=== PATIENT | male | born 1975 | race Caucasian/White ===

== ENCOUNTER 2018-09-10 07:37 | Emergency (ER) | payer BC ==
[2018-09-10] MEDS ORDERED: Sodium Chloride 0.9% 10 ML Syringe FLUSH PRN (07:58)
[2018-09-10] MEDS ORDERED: Ketorolac 30 MG/ML SDV IVPUSH ONE (07:59)
[2018-09-10] MEDS ORDERED: Prochlorperazine 10 MG/2 ML SDV IVPUSH ONE (07:59)
[2018-09-10] MEDS ORDERED: diphenhydrAMINE 50 MG/ML SDV IVPUSH ONE (07:59)
--- NOTE | 2018-09-10 08:31 | EDM.PDOC ---
ED HPI GENERAL MEDICAL PROBLEM - General Chief Complaint: Headache Stated Complaint: MIGRAINE Time Seen by Provider: 09/10/18 07:52 Source of Information: Reports: Patient History Limitations: Reports: No Limitations - History of Present Illness INITIAL COMMENTS - FREE TEXT/NARRATIVE: The patient presents with a migraine. The pain is behind both eyes but more so behind the left eye. He has a history of migraines. This has been going on for about 2 days. He has no numbness, weakness, fever, chills or cough. Light does bother his eyes. He has nausea but no vomiting. Onset: Gradual Duration: Day(s): (2) Location: Reports: Head Quality: Reports: Sharp Severity: Severe Improves with: Reports: None Worsens with: Reports: None Associated Symptoms: Reports: Headaches, Nausea/Vomiting. 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 - Related Data Allergies Allergy/AdvReac Type Severity Reaction Status Date / Time acetaminophen [From Percocet] Allergy Cannot Verified 09/10/18 07:49 Remember bee pollen Allergy Cannot Verified 09/10/18 07:49 Remember morphine Allergy Cannot Verified 09/10/18 07:49 Remember oxycodone [From Percocet] Allergy Cannot Verified 09/10/18 07:49 Remember Past Medical History Psychiatric History: Reports: PTSD Social & Family History - Family History Family Medical History: Noncontributory - Tobacco Use Smoking Status *Q: Never Smoker - Caffeine Use Caffeine Use: Reports: Coffee - Recreational Drug Use Recreational Drug Use: No ED ROS GENERAL - Review of Systems Review Of Systems: See Below Constitutional: Reports: No Symptoms HEENT: Reports: No Symptoms Respiratory: Reports: No Symptoms Cardiovascular: Reports: No Symptoms Endocrine: Reports: No Symptoms GI/Abdominal: Reports: Nausea. Denies: Abdominal Pain, Vomiting : Reports: No Symptoms Musculoskeletal: Reports: No Symptoms Neurological: Reports: Headache - Physical Exam Exam: See Below Exam Limited By: No Limitations General Appearance: Alert, No Apparent Distress Ears: Normal External Exam Nose: Normal Inspection Head Exam: Atraumatic, Normocephalic Neck: Normal Inspection Respiratory/Chest: No Respiratory Distress, Lungs Clear, Normal Breath Sounds Cardiovascular: Regular Rate, Rhythm, No Edema, No Murmur GI/Abdominal: Soft, Non-Tender, No Organomegaly, No Mass Neuro Exam (Abbreviated): Alert, Oriented, No Motor/Sensory Deficits Course - Vital Signs Last Recorded V/S: Last Vital Signs Temp 97.5 F 09/10/18 07:46 Pulse 69 09/10/18 07:46 Resp 18 09/10/18 07:46 BP 123/81 09/10/18 07:46 Pulse Ox 97 09/10/18 07:46 - Orders/Labs/Meds Orders: Active Orders 24 hr Category Date Time Status Peripheral IV Care [RC] . DIRECTED Care 09/10/18 07:58 Active Sodium Chloride 0.9% [Saline Flush] Med 09/10/18 07:58 Active 10 ml FLUSH ASDIRECTED PRN Peripheral IV Insertion Adult [OM.PC] Routine Oth 09/10/18 07:58 Ordered Medication Orders Sodium Chloride (Saline Flush) 10 ml FLUSH ASDIRECTED PRN PRN Reason: Keep Vein Open Last Admin: 09/10/18 08:05 Dose: 10 ml Meds: Medications Generic Name Dose Route Start Last Admin Trade Name Freq PRN Reason Stop Dose Admin Sodium Chloride 10 ml 09/10/18 07:58 09/10/18 08:05 Saline Flush FLUSH 10 ml ASDIRECTED PRN Administration Keep Vein Open Discontinued Medications Generic Name Dose Route Start Last Admin Trade Name Freq PRN Reason Stop Dose Admin Diphenhydramine HCl 50 mg 09/10/18 07:59 09/10/18 08:05 Benadryl IVPUSH 09/10/18 08:00 50 mg ONETIME ONE Administration Hydromorphone HCl 1 mg 09/10/18 09:03 09/10/18 09:11 Dilaudid IVPUSH 09/10/18 09:04 1 mg ONETIME ONE Administration Ketorolac Tromethamine 30 mg 09/10/18 07:59 09/10/18 08:05 Toradol IVPUSH 09/10/18 08:00 30 mg ONETIME ONE Administration Prochlorperazine Edisylate 10 mg 09/10/18 07:59 09/10/18 08:04 Compazine IVPUSH 09/10/18 08:00 10 mg ONETIME ONE Administration - Re-Assessments/Exams Free Text/Narrative Re-Assessment/Exam: 09/10/18 08:30 I ordered an IV saline lock, compazine 10mg IV, toradol 30mg IV, and benadryl 50mg IV. 09/10/18 09:48 His headache was a little better but he was anxious after the meds. I ordered dilaudid 1mg IV and that helped and now he can sleep. His is here to take him home. Departure - Departure Time of Disposition: 09:50 Disposition: Home, Self-Care 01 Condition: Good Clinical Impression: Migraine - Discharge Information *PRESCRIPTION DRUG MONITORING PROGRAM REVIEWED*: Not Applicable *COPY OF PRESCRIPTION DRUG MONITORING REPORT IN PATIENT MIKALA: Not Applicable Referrals: PCP,None [Primary Care Provider] - Forms: ED Department Discharge Additional Instructions: Go home and rest. Keep taking your medications as prescribed. Please return if you are worse. - My Orders Last 24 Hours: My Active Orders 09/10/18 07:58 Peripheral IV Care [RC] . DIRECTED Sodium Chloride 0.9% [Saline Flush] 10 ml FLUSH ASDIRECTED PRN Peripheral IV Insertion Adult [OM.PC] Routine - Assessment/Plan Last 24 Hours: My Active Orders 09/10/18 07:58 Peripheral IV Care [RC] . DIRECTED Sodium Chloride 0.9% [Saline Flush] 10 ml FLUSH ASDIRECTED PRN Peripheral IV Insertion Adult [OM.PC] Routine
[2018-09-10] MEDS ORDERED: HYDROmorphone 1 MG/ML Syringe IVPUSH ONE (09:03)
== END 2018-09-10 10:00 | disposition home or self-care (01) ==
LOC: JD.ED 07:37
DX: G43.909 Migraine, unspecified, not intractable, without status migrainosus (principal); Z88.5 Allergy status to narcotic agent
CPT/HCPCS: 96374; 96375; 99283; J0780; J1170; J1200; J1885; 99284

== ENCOUNTER 2019-05-17 07:58 | Emergency (ER) | payer BC ==
[2019-05-17] MEDS ORDERED: diphenhydrAMINE 50 MG/ML SDV IVPUSH ONE (08:21)
[2019-05-17] MEDS ORDERED: Metoclopramide 10 MG/2 ML SDV IVPUSH ONE (08:22)
[2019-05-17] MEDS ORDERED: HYDROmorphone 0.5 MG/0.5 ML Syringe IVPUSH ONE (08:22)
--- NOTE | 2019-05-17 08:28 | EDM.PDOC ---
ED HPI GENERAL MEDICAL PROBLEM - General Chief Complaint: Headache Stated Complaint: MIGRAINE x 2 DAYS Time Seen by Provider: 05/17/19 08:13 Source of Information: Reports: Patient History Limitations: Reports: No Limitations - History of Present Illness INITIAL COMMENTS - FREE TEXT/NARRATIVE: 44-year-old male presents to the ED with a severe headache for the last 48 hours. He is prone to migraine headaches. Current headache is by temporal and a lot of pressure behind his eyes. Associated nausea without vomiting. Has been lying in a dark room in good portion of the weekend. Hasn't had much to eat or drink. Nothing different about this headache and what is experienced in the past. Denies any numbness it continues or paresthesias in any of his limbs. He is photosensitive to light. He has been using Excedrin Migraine at home with mild relief of the pain. Recent falls or closed head injuries. No recent sinus infection. Onset: Gradual Onset Date: 05/15/19 Duration: Hour(s): (Awoke with headache Friday.) Location: Reports: Head (By lateral) Quality: Reports: Ache ( pounding throbbing headache.), Throbbing, Other Severity: Moderate (Pounding 9 out of 10) Improves with: Reports: Rest Worsens with: Reports: Other (Lying still in a dark room helps a little bit.) Context: Reports: Other. Denies: Activity, Exercise ( Standing and walking), Lifting, Sick Contact, Trauma Associated Symptoms: Reports: No Other Symptoms, Headaches, Loss of Appetite, Malaise, Nausea/Vomiting. 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.) Headache Pain Score (Numeric/FACES): 9 - Related Data Allergies Allergy/AdvReac Type Severity Reaction Status Date / Time bee pollen Allergy Cannot Verified 05/17/19 08:18 Remember morphine Allergy Itching Verified 05/17/19 08:46 oxycodone [From Percocet] Allergy Itching Verified 05/17/19 08:46 diphenhydramine AdvReac Anxiety Verified 05/17/19 08:46 [From Benadryl] Home Meds: Home Meds QUEtiapine [SEROquel] 05/17/19 [History] buPROPion HCl [Wellbutrin Xl] 05/17/19 [History] cloNIDine [Catapres] 05/17/19 [History] hydrOXYzine HCL [Hydroxyzine HCl] 05/17/19 [History] Past Medical History Neurological History: Reports: Migraines Psychiatric History: Reports: PTSD Social & Family History - Family History Family Medical History: Noncontributory - Tobacco Use Smoking Status *Q: Never Smoker - Caffeine Use Caffeine Use: Reports: Coffee - Recreational Drug Use Recreational Drug Use: No - Living Situation & Occupation Living situation: Reports: Occupation: Employed ED ROS GENERAL - Review of Systems Review Of Systems: See Below Constitutional: Reports: Malaise, Fatigue, Decreased Appetite. Denies: Fever, Chills HEENT: Reports: Other (Photosensitive to light) Respiratory: Reports: No Symptoms Cardiovascular: Reports: No Symptoms Endocrine: Reports: No Symptoms GI/Abdominal: Reports: Decreased Appetite, Nausea : Reports: No Symptoms (Associated with the headache.) Musculoskeletal: Reports: No Symptoms Skin: Reports: No Symptoms Neurological: Reports: No Symptoms Psychiatric: Reports: No Symptoms Hematologic/Lymphatic: Reports: No Symptoms Immunologic: Reports: No Symptoms - Physical Exam Exam: See Below General Appearance: Alert, WD/WN, Mild Distress, Other (Wears dark sunglasses in the ED.) Eye Exam: Bilateral Eye: Normal Inspection, PERRL Throat/Mouth: Normal Inspection, Normal Lips, Normal Teeth, Normal Oropharynx, Other (Tongue is moist) Head Exam: Atraumatic, Normocephalic Neck: Normal Inspection, Supple, Non-Tender, Full Range of Motion. No: Lymphadenopathy (L), Lymphadenopathy (R) Respiratory/Chest: No Respiratory Distress, Lungs Clear, Normal Breath Sounds, No Accessory Muscle Use Cardiovascular: Normal Peripheral Pulses, Regular Rate, Rhythm, No Edema, No Murmur, No Rub GI/Abdominal: Normal Bowel Sounds, Soft, Non-Tender, No Organomegaly, No Abnormal Bruit, No Mass Neuro Exam (Abbreviated): Alert, Oriented, CN II-XII Intact, Normal Cognition, Normal Gait, No Motor/Sensory Deficits, Other (No pronator drift. Rapid alternating movements are normal.) Extremities: Normal Inspection, Normal Range of Motion, Non-Tender, No Pedal Edema Psychiatric: Flat Affect Skin Exam: Warm, Dry, Intact, Normal Color, No Rash Course - Vital Signs Last Recorded V/S: Last Vital Signs Temp 36.3 C 05/17/19 08:14 Pulse 74 05/17/19 08:14 Resp 15 05/17/19 08:14 BP 136/94 H 05/17/19 08:14 Pulse Ox 98 05/17/19 08:14 - Orders/Labs/Meds Orders: Active Orders 24 hr Category Date Time Status Dextrose 5%-0.9% NaCl [Dextrose 5%-Normal Saline] 1,000 Med 05/17/19 08:30 Active ml IV ASDIRECTED Ketorolac [Toradol] Med 05/17/19 08:30 Active 30 mg IVPUSH ONETIME Medication Orders Dextrose/Sodium Chloride (Dextrose 5%-Normal Saline) 1,000 mls @ 999 mls/hr IV ASDIRECTED DAVIS Last Admin: 05/17/19 08:31 Dose: 999 mls/hr Ketorolac Tromethamine (Toradol) 30 mg IVPUSH ONETIME DAVIS Last Admin: 05/17/19 08:33 Dose: 30 mg Meds: Medications Generic Name Dose Route Start Last Admin Trade Name Freq PRN Reason Stop Dose Admin Dextrose/Sodium Chloride 1,000 mls @ 999 mls/hr 05/17/19 08:30 05/17/19 08:31 Dextrose 5%-Normal Saline IV 999 mls/hr ASDIRECTED DAVIS Administration Ketorolac Tromethamine 30 mg 05/17/19 08:30 05/17/19 08:33 Toradol IVPUSH 30 mg ONETIME DAVIS Administration Discontinued Medications Generic Name Dose Route Start Last Admin Trade Name Freq PRN Reason Stop Dose Admin Diphenhydramine HCl 25 mg 05/17/19 08:21 05/17/19 08:34 Benadryl IVPUSH 05/17/19 08:22 Not Given ONETIME ONE Hydromorphone HCl 0.5 mg 05/17/19 08:22 05/17/19 08:34 Dilaudid IVPUSH 05/17/19 08:23 0.5 mg ONETIME ONE Administration Metoclopramide HCl 7.5 mg 05/17/19 08:22 05/17/19 08:33 Reglan IVPUSH 05/17/19 08:23 7.5 mg ONETIME ONE Administration - Radiology Interpretation Free Text/Narrative:: 44-year-old male presents to the ED with a severe bitemporal headache for the last 48 hours associated with nausea. He states it's quite typical of his migraine headaches that he experiences intermittently. Minimal relief with Excedrin Migraine at home. He is allergic to morphine and to Percocet. Both caused quite bad itching. Plan IV D5 normal saline at open. Given Reglan 7.5 mg IV with Benadryl 25 mg IV. Toradol 30 mg IV and Dilaudid 0.5 mg IV for headache relief. - Re-Assessments/Exams Free Text/Narrative Re-Assessment/Exam: 05/17/19 09:20 reports headache is slowly improving. Currently a 6 out of 10. He states it's tolerable this point time. Doesn't wish any more medication. Therefore will be discharged home in the care of his . He'll go home to sleep for the next couple of hours. He will resume regular diet when able. Departure - Departure Time of Disposition: 09:20 Disposition: Home, Self-Care 01 Condition: Fair Clinical Impression: Migraine headache Qualifiers: Migraine type: without aura Status migrainosus presence: without status migrainosus Intractability: not intractable Qualified Code(s): G43.009 - Migraine without aura, not intractable, without status migrainosus - Discharge Information *PRESCRIPTION DRUG MONITORING PROGRAM REVIEWED*: Not Applicable *COPY OF PRESCRIPTION DRUG MONITORING REPORT IN PATIENT MIKALA: Not Applicable Instructions: Recurrent Migraine Headache, [id number] Referrals: Jesus Soriano PA-C [Primary Care Provider] - Forms: ED Department Discharge, ED Return to Work/School Form Additional Instructions: Evaluation the emergency room today in regards to persistent severe headache for the last 2 days. Associated nausea without vomiting. Associated photophobia. You're treated with intravenous fluids and medications Dilaudid with Toradol 30 and Reglan 7.5 mg IV. Suggest home to sleep for the next 2-3 hours to see if he can break the headache cycle. Resume regular diet and plenty of fluids when able. Sepsis Event Note - Evaluation Sepsis Screening Result: No Definite Risk - Focused Exam Vital Signs: Vital Signs Temp Pulse Resp BP Pulse Ox 05/17/19 08:14 36.3 C 74 15 136/94 H 98 Date Exam was Performed: 05/17/19 Time Exam was Performed: 09:31 - My Orders Last 24 Hours: My Active Orders 05/17/19 08:30 Dextrose 5%-0.9% NaCl [Dextrose 5%-Normal Saline] 1,000 ml IV ASDIRECTED Ketorolac [Toradol] 30 mg IVPUSH ONETIME - Assessment/Plan Last 24 Hours: My Active Orders 05/17/19 08:30 Dextrose 5%-0.9% NaCl [Dextrose 5%-Normal Saline] 1,000 ml IV ASDIRECTED Ketorolac [Toradol] 30 mg IVPUSH ONETIME
[2019-05-17] MEDS ORDERED: Ketorolac 30 MG/ML SDV IVPUSH SCH (08:30)
[2019-05-17] MEDS ORDERED: Dextrose 5%-0.9% NaCl 1,000 ML IV SCH (08:30)
== END 2019-05-17 09:29 | disposition home or self-care (01) ==
LOC: JD.ED 07:58
DX: G43.009 Migraine without aura, not intractable, without status migrainosus (principal); Z88.5 Allergy status to narcotic agent; Z88.8 Allergy status to other drugs, medicaments and biological substances; Z79.899 Other long term (current) drug therapy
CPT/HCPCS: 96361; 96374; 96375; 99284; J1170; J1885; J2765; J7042; 99283

== ENCOUNTER 2020-08-10 06:49 | Emergency (ER) | payer BC ==
--- NOTE | 2020-08-10 07:20 | EDM.PDOC ---
ED HPI GENERAL MEDICAL PROBLEM - General Chief Complaint: Headache Stated Complaint: MIGRANE HEADACHE Time Seen by Provider: 08/10/20 07:10 Source of Information: Reports: Patient History Limitations: Reports: No Limitations - History of Present Illness INITIAL COMMENTS - FREE TEXT/NARRATIVE: 45-year-old male presents to the ED with a bad headache characterization of the migraine headaches that he suffers from intermittently. States he ends up in the ER about twice a year with a really bad headache. This 1 started about 10:00 last night. Pressure throbbing pulsating sensation mostly temporal parietal scalp bilaterally and behind his eyes bilaterally. Some pressure discomfort in the occipital area as well. Associated nausea without vomiting. Photophobic. Medications he took at home i.e. Motrin Tylenol failed to provide any relief of headache. Onset: Sudden Onset Date: 08/09/20 Onset Time: 22:00 Duration: Hour(s):, Constant Location: Reports: Head (Generalized headaches primarily felt in both temporal parietal scalp aspects of the scalp and retroocular headache. He described as pulsating throbbing. He slept very little last night due to the intensity of the headache.) Quality: Reports: Ache, Throbbing, Other Severity: Severe (Ulcerating) Improves with: Reports: None Worsens with: Reports: Movement Context: Denies: Activity (Sitting up or standing up makes the headache worse.), Exercise, Lifting, Sick Contact, Trauma, Other Associated Symptoms: Reports: Headaches, Loss of Appetite, Malaise, Nausea/Vomiting (Nausea without vomiting). Denies: No Other Symptoms, Confusion, Chest Pain, Cough, cough w sputum, Diaphoresis, Fever/Chills, Rash, Seizure, Shortness of Breath, Syncope, Weakness Treatments BATTERY HAND: Reports: Acetaminophen, NSAIDS Headache Pain Score (Numeric/FACES): 9 - Related Data Allergies Allergy/AdvReac Type Severity Reaction Status Date / Time bee pollen Allergy Cannot Verified 08/10/20 07:13 Remember morphine Allergy Itching Verified 08/10/20 07:13 oxycodone [From Percocet] Allergy Itching Verified 08/10/20 07:13 diphenhydramine AdvReac Anxiety Verified 08/10/20 07:13 [From Benadryl] Home Meds: Home Meds QUEtiapine [SEROquel] 100 mg PO BEDTIME 05/17/19 [History] buPROPion HCL [Wellbutrin Xl] 150 mg PO DAILY 05/17/19 [History] cloNIDine [Catapres] 0.1 mg PO DAILY 05/17/19 [History] hydrOXYzine HCL [Hydroxyzine HCl] 50 mg PO DAILY 05/17/19 [History] Past Medical History Neurological History: Reports: Migraines Psychiatric History: Reports: PTSD Social & Family History - Family History Family Medical History: No Pertinent Family History - Caffeine Use Caffeine Use: Reports: Coffee - Living Situation & Occupation Living situation: Reports: Occupation: Employed ED ROS GENERAL - Review of Systems Review Of Systems: See Below Constitutional: Reports: Malaise, Fatigue, Decreased Appetite (From not sleeping all night.). Denies: Fever, Chills HEENT: Reports: Other (Feels a sense sensitivity to light.) Respiratory: Reports: No Symptoms Cardiovascular: Reports: No Symptoms Endocrine: Reports: Fatigue GI/Abdominal: Reports: Decreased Appetite, Nausea. Denies: Vomiting : Reports: No Symptoms Musculoskeletal: Reports: No Symptoms Skin: Reports: No Symptoms Neurological: Reports: Dizziness (Frequent migraine headaches.), Headache Psychiatric: Reports: Other Hematologic/Lymphatic: Reports: No Symptoms Immunologic: Reports: No Symptoms (Suffers from PTSD.) - Physical Exam Exam: See Below Exam Limited By: No Limitations General Appearance: Alert, WD/WN, Mild Distress, Other (Temperature is 36.2 and he does not feel warm to palpation. Heart rate is 84 and sinus. Respiratory to 16 with O2 sats of 96% room air BP is 136/89.) Eye Exam: Bilateral Eye: Normal Inspection (No scleral icterus or blepharal pallor.), PERRL Throat/Mouth: Normal Lips, Normal Teeth, Other (Tongue is dry and mildly coated.) Head Exam: Atraumatic, Normocephalic Neck: Normal Inspection, Supple, Non-Tender, Full Range of Motion. No: Carotid Bruit, Lymphadenopathy (L), Lymphadenopathy (R) Respiratory/Chest: No Respiratory Distress, Lungs Clear, Normal Breath Sounds, No Accessory Muscle Use Cardiovascular: Normal Peripheral Pulses, Regular Rate, Rhythm, No Edema, No Gallop, No Murmur, No Rub GI/Abdominal: Soft, Non-Tender, No Organomegaly, No Abnormal Bruit, No Mass, Pelvis Stable, Abnormal Bowel Sounds (Slightly decreased breath sounds from the norm in all 4 quadrants.) Neuro Exam (Abbreviated): Alert, Oriented, CN II-XII Intact, Normal Cognition, Normal Gait, No Motor/Sensory Deficits Back Exam: Normal Inspection, Full Range of Motion. No: CVA Tenderness (L), CVA Tenderness (R) Extremities: Normal Inspection, Normal Range of Motion, Non-Tender, No Pedal Edema Psychiatric: Normal Affect, Normal Mood Skin Exam: Warm, Dry, Intact, Normal Color, No Rash Course - Vital Signs Last Recorded V/S: Last Vital Signs Temp 36.2 C 08/10/20 07:10 Pulse 84 08/10/20 07:10 Resp 16 08/10/20 07:10 BP 136/89 08/10/20 07:10 Pulse Ox 96 08/10/20 07:10 - Orders/Labs/Meds Orders: Active Orders 24 hr Category Date Time Status Dextrose 5%-0.9% NaCl [Dextrose 5%-Normal Saline] 1,000 Med 08/10/20 07:30 Active ml IV ASDIRECTED Medication Orders Dextrose/Sodium Chloride (Dextrose 5%-Normal Saline) 1,000 mls @ 999 mls/hr IV ASDIRECTED DAVIS Last Admin: 08/10/20 07:34 Dose: 999 mls/hr Documented by: NICK Meds: Medications Generic Name Dose Route Start Last Admin Trade Name Freq PRN Reason Stop Dose Admin Dextrose/Sodium Chloride 1,000 mls @ 999 mls/hr 08/10/20 07:30 08/10/20 07:34 Dextrose 5%-Normal Saline IV 999 mls/hr ASDIRECTED DAVIS Administration Discontinued Medications Generic Name Dose Route Start Last Admin Trade Name Freq PRN Reason Stop Dose Admin Benztropine Mesylate 1 mg 08/10/20 07:22 08/10/20 07:35 Benztropine 1 Mg Tab PO 08/10/20 07:23 1 mg ONETIME ONE Administration Hydromorphone HCl 1 mg 08/10/20 07:22 08/10/20 07:32 Hydromorphone 1 Mg/Ml Syringe IVPUSH 08/10/20 07:23 1 mg ONETIME ONE Administration Metoclopramide HCl 10 mg 08/10/20 07:22 08/10/20 07:30 Metoclopramide 10 Mg/2 Ml Sdv IVPUSH 08/10/20 07:23 10 mg ONETIME ONE Administration - Radiology Interpretation Free Text/Narrative:: 45-year-old male presents to the ED with a diffuse throbbing pounding pulsating headache felt primarily in both temporal aspects of his skull as well as parietal skull and left occipital area. These are characteristic of the type of migraines he usually gets. This 1 is a little more intense than what he usually gets. Associated nausea without vomiting. Oral meds Tylenol Motrin did not help at all. Slept very poorly last night due to the intensity of the headache. Patient is allergic to Benadryl as it makes him very anxious. Toradol has not helped in the past. Plan IV D5 normal saline at open. Given Dilaudid 1 mg IV with Reglan 10 mg IV for headache relief. - Re-Assessments/Exams Free Text/Narrative Re-Assessment/Exam: 08/10/20 08:24 patient reports headache is markedly improved. Currently rates it is a 3-4 out of 10. Plan will be to discharge him home to sleep for the next 3 to 4 hours to break the headache cycle. Departure - Departure Time of Disposition: 08:35 Disposition: Home, Self-Care 01 Condition: Fair Clinical Impression: Migraine headache without aura Qualifiers: Status migrainosus presence: without status migrainosus Intractability: not intractable Qualified Code(s): G43.009 - Migraine without aura, not intractable, without status migrainosus - Discharge Information *PRESCRIPTION DRUG MONITORING PROGRAM REVIEWED*: Not Applicable *COPY OF PRESCRIPTION DRUG MONITORING REPORT IN PATIENT MIKALA: Not Applicable Instructions: Recurrent Migraine Headache Referrals: Jesus Soriano PA-C [Primary Care Provider] - Forms: ED Department Discharge Additional Instructions: Evaluation in the emergency room today in regards to a severe migraine headache that started last evening before bed. You were treated in the ED with a liter of IV fluids to provide hydration. You were given Dilaudid 1 mg IV with Reglan 10 mg IV for headache relief . Just home to sleep rest for the next 3 to 4 hours to break the headache cycle. Resume regular diet when able. Sepsis Event Note (ED) - Focused Exam Vital Signs: Vital Signs Temp Pulse Resp BP Pulse Ox 08/10/20 07:10 36.2 C 84 16 136/89 96 - My Orders Last 24 Hours: My Active Orders 08/10/20 07:30 Dextrose 5%-0.9% NaCl [Dextrose 5%-Normal Saline] 1,000 ml IV ASDIRECTED - Assessment/Plan Last 24 Hours: My Active Orders 08/10/20 07:30 Dextrose 5%-0.9% NaCl [Dextrose 5%-Normal Saline] 1,000 ml IV ASDIRECTED
[2020-08-10] MEDS ORDERED: Benztropine 1 MG Tab PO ONE (07:22)
[2020-08-10] MEDS ORDERED: HYDROmorphone 1 MG/ML Syringe IVPUSH ONE (07:22)
[2020-08-10] MEDS ORDERED: Metoclopramide 10 MG/2 ML SDV IVPUSH ONE (07:22)
[2020-08-10] MEDS ORDERED: Dextrose 5%-0.9% NaCl 1,000 ML IV SCH (07:30)
== END 2020-08-10 08:39 | disposition home or self-care (01) ==
LOC: SUPCPDRO 06:49 → JD.ED 06:49
DX: G43.009 Migraine without aura, not intractable, without status migrainosus (principal); Z91.030 Bee allergy status; Z88.5 Allergy status to narcotic agent; Z88.8 Allergy status to other drugs, medicaments and biological substances; Z79.899 Other long term (current) drug therapy
CPT/HCPCS: 96374; 96375; 99283; A9270; J1170; J2765; J7042

== ENCOUNTER 2020-10-18 17:37 | Emergency (ER) | payer BC ==
[2020-10-18] MEDS ORDERED: Ketorolac 60 MG/2 ML SDV IM ONE (17:51)
[2020-10-18] MEDS ORDERED: HYDROmorphone 0.5 MG/0.5 ML Syringe IM ONE (17:51)
[2020-10-18] MEDS ORDERED: Metoclopramide 10 MG/2 ML SDV IM ONE (17:51)
--- NOTE | 2020-10-18 17:55 | EDM.PDOC ---
ED HPI GENERAL MEDICAL PROBLEM - General Chief Complaint: Headache Stated Complaint: HEADACHE Time Seen by Provider: 10/18/20 17:40 Source of Information: Reports: Patient, RN Notes Reviewed History Limitations: Reports: No Limitations - History of Present Illness INITIAL COMMENTS - FREE TEXT/NARRATIVE: Patient is a 45-year-old male who presents to the ER for evaluation of his headache. Notes that he has a history of migraines, and he typically gets a pretty bad migraine like this every 3 or 4 months. His last migraine like this was around July. States that this headache started on Friday, and he is not been able to get it under control. He has been using Excedrin at home, last dose was at around 4 PM this afternoon. He does have light and sound sensitivities, nausea without vomiting. States that he has been able to eat and drink a fair amount, he does not feel too dehydrated. States that the headache is behind his eyes, on the frontal portion of his head. States he has had a neurological work-up many years ago, he has not been on any sort of prophylaxis medications, states that he used to give himself Toradol shots, but he is not been on any triptan's. States that he supposed to have an appoint with Jesus Soriano sometime soon for ongoing management. States that his headache is typical for his normal headaches, nothing seems to be worse. Headache Pain Score (Numeric/FACES): 8 - Related Data Allergies Allergy/AdvReac Type Severity Reaction Status Date / Time bee pollen Allergy Severe Cannot Verified 10/18/20 17:44 Remember morphine Allergy Severe Itching Verified 10/18/20 17:44 oxycodone [From Percocet] Allergy Severe Itching Verified 10/18/20 17:44 diphenhydramine AdvReac Severe Anxiety Verified 10/18/20 17:44 [From Benadryl] Home Meds: Home Meds QUEtiapine [SEROquel] 100 mg PO BEDTIME 05/17/19 [History] buPROPion HCL [Wellbutrin Xl] 150 mg PO DAILY 05/17/19 [History] cloNIDine [Catapres] 0.1 mg PO DAILY 05/17/19 [History] hydrOXYzine HCL [Hydroxyzine HCl] 50 mg PO DAILY 05/17/19 [History] ALPRAZolam [Alprazolam] 0.25 mg PO DAILY PRN 10/18/20 [History] Prazosin HCl [Prazosin] 2 mg PO BEDTIME 10/18/20 [History] lamoTRIgine [Lamotrigine] 100 mg PO DAILY 10/18/20 [History] Past Medical History HEENT History: Reports: Impaired Vision Other HEENT History: wears eyeglasses. Respiratory History: Reports: Asthma Musculoskeletal History: Reports: Fracture Neurological History: Reports: Migraines Psychiatric History: Reports: Anxiety, PTSD Endocrine/Metabolic History: Reports: Obesity/BMI 30+ - Infectious Disease History Infectious Disease History: Reports: Chicken Pox, Measles - Past Surgical History GI Surgical History: Reports: Appendectomy, Cholecystectomy Musculoskeletal Surgical History: Reports: Arthroscopic Knee, Shoulder Surgery Social & Family History - Family History Family Medical History: No Pertinent Family History - Tobacco Use Tobacco Use Status *Q: Never Tobacco User - Caffeine Use Caffeine Use: Reports: Soda - Recreational Drug Use Recreational Drug Use: No - Living Situation & Occupation Living situation: Reports: Occupation: Employed ED ROS GENERAL - Review of Systems Review Of Systems: Comprehensive ROS is negative, except as noted in HPI. - Physical Exam Exam: See Below Exam Limited By: No Limitations General Appearance: Alert, WD/WN, No Apparent Distress Eye Exam: Bilateral Eye: EOMI, Normal Inspection, PERRL Respiratory/Chest: No Respiratory Distress, Lungs Clear, Normal Breath Sounds, No Accessory Muscle Use, Chest Non-Tender Cardiovascular: Normal Peripheral Pulses, Regular Rate, Rhythm, No Edema Neuro Exam (Abbreviated): Alert, Oriented, Normal Cognition, No Motor/Sensory Deficits Extremities: Normal Inspection, Normal Capillary Refill Psychiatric: Normal Affect, Normal Mood Skin Exam: Warm, Dry, Intact, Normal Color, No Rash Course - Vital Signs Last Recorded V/S: Last Vital Signs Temp 96.8 F L 10/18/20 17:42 Pulse 82 10/18/20 17:42 Resp 16 10/18/20 17:42 BP 150/93 H 10/18/20 17:42 Pulse Ox 96 10/18/20 17:42 - Orders/Labs/Meds Meds: Medications Discontinued Medications Generic Name Dose Route Start Last Admin Trade Name Freq PRN Reason Stop Dose Admin Hydromorphone HCl 0.5 mg 10/18/20 17:51 10/18/20 18:19 Hydromorphone 0.5 Mg/0.5 Ml Syringe IM 10/18/20 17:52 0.5 mg ONETIME ONE Administration Ketorolac Tromethamine 60 mg 10/18/20 17:51 10/18/20 18:18 Ketorolac 60 Mg/2 Ml Sdv IM 10/18/20 17:52 60 mg ONETIME ONE Administration Metoclopramide HCl 10 mg 10/18/20 17:51 10/18/20 18:19 Metoclopramide 10 Mg/2 Ml Sdv IM 10/18/20 17:52 10 mg ONETIME ONE Administration - Re-Assessments/Exams Free Text/Narrative Re-Assessment/Exam: 10/18/20 17:55 Patient presents to the ER for his headache, we will go ahead and get him 60 mg IM Toradol, 0.5 mg IM Dilaudid, and 10 mg IM Reglan for management. 10/18/20 18:43 Patient is feeling better, he is ready to go home at this time. Departure - Departure Time of Disposition: 18:43 Disposition: Home, Self-Care 01 Condition: Good Clinical Impression: Headache Qualifiers: Headache type: other headache syndrome Qualified Code(s): G44.89 - Other headache syndrome - Discharge Information *PRESCRIPTION DRUG MONITORING PROGRAM REVIEWED*: No *COPY OF PRESCRIPTION DRUG MONITORING REPORT IN PATIENT MIKALA: No Instructions: Migraine Headache, [id number] Referrals: Jesus Soriano PA-C [Primary Care Provider] - Forms: ED Department Discharge Additional Instructions: You were evaluated in the ED for your headache. You were given a combination of medications for management. This did seem to provide you pretty good relief of your symptoms. Recommend that you go home and rest in a quiet, darkened room. Try also to keep well hydrated. Please return to the ED if your symptoms should change or worsen. Sepsis Event Note (ED) - Evaluation Sepsis Screening Result: No Definite Risk - Focused Exam Vital Signs: Vital Signs Temp Pulse Resp BP Pulse Ox 10/18/20 17:42 96.8 F L 82 16 150/93 H 96
== END 2020-10-18 19:10 | disposition home or self-care (01) ==
LOC: JD.ED 17:37
DX: G44.89 Other headache syndrome (principal); J45.909 Unspecified asthma, uncomplicated; E66.9 Obesity, unspecified; Z68.30 Body mass index [BMI] 30.0-30.9, adult; Z91.030 Bee allergy status; Z88.5 Allergy status to narcotic agent; Z88.6 Allergy status to analgesic agent; Z79.899 Other long term (current) drug therapy
CPT/HCPCS: 96372; 99283; J1170; J1885; J2765

== ENCOUNTER 2020-12-12 07:48 | Day surgery (SDC) | payer BC ==
[~2020-12-12 07:48] MED LIST: Lactated Ringers 1,000 ML IV SCH; Lidocaine 1%/Sod Bicarbonate in NS 8.4% 1 ML Syringe IDERM PRN; Sodium Chloride 0.9% 10 ML Syringe FLUSH PRN
[2020-12-12] MEDS ORDERED: Bupivacaine 0.5%/EPINEPHrine 1:200,000 50 ML MDV ONE (08:05)
[2020-12-12] MEDS ORDERED: Propofol 200 MG/20 ML SDV ONE (08:34)
[2020-12-12] MEDS ORDERED: fentaNYL 250 MCG/5 ML SDV ONE (08:34)
[2020-12-12] MEDS ORDERED: Midazolam 1 MG/ML 2 ML SDV ONE (08:34)
[2020-12-12] MEDS ORDERED: Dexamethasone 4 MG/ML 5 ML MDV ONE (08:36)
[2020-12-12] MEDS ORDERED: Rocuronium 50 MG/5 ML Vial ONE (08:36)
[2020-12-12] MEDS ORDERED: Lidocaine 1% 4 ML ONE (08:36)
[2020-12-12] MEDS ORDERED: Ondansetron 4 MG/2 ML SDV ONE (08:36)
[2020-12-12] MEDS ORDERED: ceFAZolin 1 GM Vial ONE (09:20)
[2020-12-12] MEDS ORDERED: Dexmedetomidine 200 MCG/2 ML SDV ONE (09:26)
[2020-12-12] MEDS ORDERED: Sodium Chloride 0.9% 100 ML ONE (09:26)
[2020-12-12] MEDS ORDERED: HYDROmorphone 1 MG/ML Syringe ONE (09:53)
--- NOTE | 2020-12-12 10:34 | PCM.PRNOTE ---
- Free Text/Narrative Note: Date: 12/12/2020 Operation: laparoscopic repair of epigastric port site hernia with intraperitoneal coated mesh reinforcement Surgeon: Corey Purcell MD Antibiotic: 2 g ancef IV pre-op EBL: 5 cc DVT ppx: SCD Findings: small port site hernia at epigastrium obscured by falciform ligament, containing pre-peritoneal fat. 11.5 cm Ventralex coated mesh placed deep to primary fascial closure. Detailed Report: The patient was taken to the operating room and placed on the table in supine position. Timeout was performed and general endotracheal anesthesia was initiated. Abdominal hair was clipped and the patient's left arm was tucked at his side. The abdomen was prepped and draped in usual sterile fashion. A Veress needle was placed in the left upper quadrant in order to establish pneumoperitoneum. Once pressure reached 15 mmHg, air was aspirated inferior to the umbilicus with a needle and syringe. A 5 mm bladed trocar was inserted into the abdomen at the site. A 5 mm 30 degree laparoscope was inserted into the abdomen and contents inspected. There appeared to be no inadvertent injury from Veress needle placement and the needle was removed. Additional 5 mm ports were placed along the left lateral abdomen. On inspection, there was no apparent hernia. However, at the site indicated by the patient and palpated in the preoperative area, the falciform ligament appeared to obscure small port site hernia. The falciform ligament was dissected down away from the anterior abdomen using the [place] LigaSure. At this point, the hernia was evident containing a moderate amount of preperitoneal fat. The fat was excised and a 12 mm bladed trocar was inserted through the hernia defect. The defect measured approximately 2 x 2 cm. A piece of circular Ventralex coated permanent mesh measuring 11.5 cm in diameter was introduced into the abdomen after placing anchoring 0 Vicryl sutures in the mesh at the cardinal directions. The 12 mm trocar was removed and a [id number] 0 Vicryl suture for primary closure of the fascia was placed using laparoscopic suture passer. After primary closure, small stab incisions were made to allow transfascial passage of the anchoring sutures of the mesh. After the mesh was anchored at 4 quadrants, a laparoscopic secure strap was used to fix the mesh to the anterior abdominal wall between the transfascial sutures. The mesh appeared to lie in good position. Lateral 5 mm ports were removed under laparoscopic visualization and hemostasis was satisfactory. Pneumoperitoneum was released and the infraumbilical port removed. All skin incisions were closed using running subcuticular Vicryl suture. All port sites and stab incisions were dressed with Dermabond. A total of 30 cc 0.5% Marcaine with epinephrine was used for anesthetic throughout the case. The patient tolerated the procedure well.
[2020-12-12] MEDS ORDERED: Ketorolac 15 MG/ML SDV ONE (10:41)
[2020-12-12] MEDS ORDERED: Ondansetron 4 MG/2 ML SDV IVPUSH PRN (10:48)
[2020-12-12] MEDS ORDERED: HYDROmorphone 0.5 MG/0.5 ML Syringe IVPUSH PRN (10:48)
[2020-12-12] MEDS ORDERED: fentaNYL 100 MCG/2 ML SDV IVPUSH PRN (10:48)
--- NOTE | 2020-12-12 10:48 | PCM.POSTAN ---
POST ANESTHESIA ASSESSMENT - MENTAL STATUS Mental Status: Somnolent - VITAL SIGNS Vital Signs: Last Vital Signs Temp 36.3 C 12/12/20 10:45 Pulse 66 12/12/20 10:45 Resp 12 12/12/20 10:45 BP 119/78 12/12/20 10:45 Pulse Ox 97 12/12/20 10:45 - RESPIRATORY Respiratory Status: Respiratory Rate WNL, Airway Patent, O2 Saturation Stable, Supplemental Oxygen - CARDIOVASCULAR CV Status: Pulse Rate WNL, Blood Pressure Stable - GASTROINTESTINAL GI Status: No Symptoms - PAIN Pain Score: 0 - POST OP HYDRATION Hydration Status: Adequate & Stable
--- NOTE | 2020-12-12 10:57 | PCM.PREANE ---
Preanesthetic Assessment - Procedure Proposed Procedure: epigastric hernia repair - Anesthesia/Transfusion/Family Hx Anesthesia History: Prior Anesthesia Without Reaction Family History of Anesthesia Reaction: No Transfusion History: No Prior Transfusion(s) - Review of Systems General: No Symptoms Pulmonary: Other (hx asthma ) Cardiovascular: No Symptoms Gastrointestinal: No Symptoms Neurological: Other (depresion, anxiety, PTSD, migraines) - Physical Assessment NPO Status Date: 12/11/20 NPO Status Time: 21:00 Vital Signs: Last Vital Signs Temp 36.3 C 12/12/20 10:45 Pulse 66 12/12/20 10:45 Resp 12 12/12/20 10:45 BP 119/78 12/12/20 10:45 Pulse Ox 97 12/12/20 10:45 Height: 1.78 m Weight: 95.708 kg ASA Class: 2 Mental Status: Alert & Oriented x3 Airway Class: Mallampati = 2 Dentition: Reports: Normal Dentition Thyro-Mental Finger Breadths: 3 Mouth Opening Finger Breadths: 3 ROM/Head Extension: Full Lungs: Clear to Auscultation Cardiovascular: Regular Rate, Regular Rhythm - Allergies Allergies/Adverse Reactions: Allergies Allergy/AdvReac Type Severity Reaction Status Date / Time morphine Allergy Severe Itching Verified 10/18/20 17:44 oxycodone [From Percocet] Allergy Severe Itching Verified 10/18/20 17:44 - Blood Blood Available: No - Anesthesia Plan Pre-Op Medication Ordered: None - Acknowledgements Anesthesia Type Planned: General Anesthesia Pt an Appropriate Candidate for the Planned Anesthesia: Yes Alternatives and Risks of Anesthesia Discussed w Pt/Guardian: Yes Pt/Guardian Understands and Agrees with Anesthesia Plan: Yes PreAnesthesia Questionnaire HEENT History: Reports: Impaired Vision Other HEENT History: wears eyeglasses, sinus infection, left otitis media, middle ear effusion, pharyngitis, sore throat Cardiovascular History: Reports: None Respiratory History: Reports: Asthma, Sleep Apnea Gastrointestinal History: Reports: None Genitourinary History: Reports: None 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 Musculoskeletal History: Reports: Fracture Neurological History: Reports: Migraines Psychiatric History: Reports: Anxiety, Depression, PTSD Endocrine/Metabolic History: Reports: Obesity/BMI 30+ Hematologic History: Reports: None Immunologic History: Reports: None Oncologic (Cancer) History: Reports: None Dermatologic History: Reports: None - Infectious Disease History Infectious Disease History: Reports: Chicken Pox, Measles - Past Surgical History Head Surgeries/Procedures: Reports: None HEENT Surgical History: Reports: None Cardiovascular Surgical History: Reports: None Respiratory Surgical History: Reports: None GI Surgical History: Reports: Appendectomy, Cholecystectomy, Other (See Below) Other GI Surgeries/Procedures: ventral hernia Female Surgical History: Reports: None Male Surgical History: Reports: None Endocrine Surgical History: Reports: None Neurological Surgical History: Reports: None Musculoskeletal Surgical History: Reports: Arthroscopic Knee, Shoulder Surgery Oncologic Surgical History: Reports: None Dermatological Surgical History: Reports: None - HOME MEDS Home Medications: Home Meds QUEtiapine [SEROquel] 100 mg PO BEDTIME 05/17/19 [History] buPROPion HCL [Wellbutrin Xl] 150 mg PO DAILY 05/17/19 [History] cloNIDine [Catapres] 0.1 mg PO DAILY 05/17/19 [History] hydrOXYzine HCL [Hydroxyzine HCl] 50 mg PO DAILY 05/17/19 [History] ALPRAZolam [Alprazolam] 0.25 mg PO DAILY PRN 10/18/20 [History] Prazosin HCl [Prazosin] 2 mg PO BEDTIME 10/18/20 [History] lamoTRIgine [Lamotrigine] 100 mg PO DAILY 10/18/20 [History] oxyCODONE 5 mg PO Q4H PRN #20 tab 12/12/20 [Rx] - CURRENT (IN HOUSE) MEDS Current Meds: Current Medications Fentanyl (Fentanyl 100 Mcg/2 Ml Sdv) 50 mcg IVPUSH Q5M PRN PRN Reason: Pain Stop: 12/12/20 23:00 Hydromorphone HCl (Hydromorphone 0.5 Mg/0.5 Ml Syringe) 0.5 mg IVPUSH Q10M PRN PRN Reason: Pain (severe 7-10) Stop: 12/12/20 23:00 Lactated Ringer's (Ringers, Lactated) 1,000 mls @ 125 mls/hr IV ASDIRECTED DAVIS Stop: 12/12/20 23:00 Lidocaine/Sodium Bicarbonate (Lidocaine 1%/Sod Bicarbonate In Ns 8.4% 1 Ml Syringe) 0.25 ml IDERM ONETIME PRN PRN Reason: Prior to IV Start Stop: 12/12/20 18:00 Ondansetron HCl (Ondansetron 4 Mg/2 Ml Sdv) 4 mg IVPUSH ONETIME PRN PRN Reason: Nausea/Vomiting Stop: 12/12/20 23:00 Sodium Chloride (Sodium Chloride 0.9% 10 Ml Syringe) 10 ml FLUSH ASDIRECTED PRN PRN Reason: Keep Vein Open Stop: 12/12/20 18:00 Discontinued Medications Bupivacaine HCl/Epinephrine Bitart (Bupivacaine 0.5%/Epinephrine 1:200,000 50 Ml Mdv) Confirm Administered Dose 50 ml .ROUTE .STK-MED ONE Stop: 12/12/20 08:06 Last Admin: 12/12/20 09:58 Dose: 50 ml Documented by: Cefazolin Sodium (Cefazolin 1 Gm Vial) Confirm Administered Dose 2 gm .ROUTE .STK-MED ONE Stop: 12/12/20 09:21 Dexamethasone (Dexamethasone 4 Mg/Ml 5 Ml Mdv) Confirm Administered Dose 20 mg .ROUTE .STImpressto-MED ONE Stop: 12/12/20 08:37 Dexmedetomidine HCl (Dexmedetomidine 200 Mcg/2 Ml Sdv) Confirm Administered Dose 200 mcg .ROUTE .STK-MED ONE Stop: 12/12/20 09:27 Fentanyl (Fentanyl 250 Mcg/5 Ml Sdv) Confirm Administered Dose 250 mcg .ROUTE .STImpressto-MED ONE Stop: 12/12/20 08:35 Glycopyrrolate (Glycopyrrolate 0.2 Mg/Ml 2 Ml Syringe) Confirm Administered Dose 0.4 mg .ROUTE .STImpressto-MED ONE Stop: 12/12/20 10:11 Hydromorphone HCl (Hydromorphone 1 Mg/Ml Syringe) Confirm Administered Dose 1 mg .ROUTE .STImpressto-MED ONE Stop: 12/12/20 09:54 Lidocaine HCl (Xylocaine-Mpf 1%) Confirm Administered Dose 4 mls @ as directed .ROUTE .STImpressto-MED ONE Stop: 12/12/20 08:37 Sodium Chloride (Normal Saline) Confirm Administered Dose 100 mls @ as directed .ROUTE .STImpressto-MED ONE Stop: 12/12/20 09:27 Ketorolac Tromethamine (Ketorolac 15 Mg/Ml Sdv) Confirm Administered Dose 30 mg .ROUTE .STImpressto-MED ONE Stop: 12/12/20 10:42 Midazolam HCl (Midazolam 1 Mg/Ml 2 Ml Sdv) Confirm Administered Dose 2 mg .ROUTE .STK-MED ONE Stop: 12/12/20 08:35 Neostigmine Methylsulfate (Neostigmine Methylsulfate 5 Mg/5 Ml Syringe) Confirm Administered Dose 5 mg .ROUTE .STImpressto-MED ONE Stop: 12/12/20 10:12 Ondansetron HCl (Ondansetron 4 Mg/2 Ml Sdv) Confirm Administered Dose 4 mg .ROUTE .STImpressto-MED ONE Stop: 12/12/20 08:37 Propofol (Propofol 200 Mg/20 Ml Sdv) Confirm Administered Dose 200 mg .ROUTE .STImpressto-MED ONE Stop: 12/12/20 08:35 Rocuronium [place] (Rocuronium 50 Mg/5 Ml Vial) Confirm Administered Dose 50 mg .ROUTE .STImpressto-MED ONE Stop: 12/12/20 08:37
[2020-12-12] MEDS ORDERED: oxyCODONE 5 MG Tab PO PRN (12:01)
--- NOTE | 2020-12-12 13:00 | PCM48HPAN ---
Post Anesthesia Note - EVALUATION WITHIN 48HRS OF ANESTHETIC Vital Signs in Normal Range: Yes Patient Participated in Evaluation: Yes Respiratory Function Stable: Yes Airway Patent: Yes Cardiovascular Function Stable: Yes Hydration Status Stable: Yes Pain Control Satisfactory: Yes Nausea and Vomiting Control Satisfactory: Yes Mental Status Recovered: Yes Vital Signs: Last Vital Signs Temp 36.9 C 12/12/20 11:30 Pulse 79 12/12/20 12:21 Resp 16 12/12/20 12:21 BP 110/77 12/12/20 12:21 Pulse Ox 95 12/12/20 12:21
== END 2020-12-12 13:26 | disposition home or self-care (01) ==
LOC: JD.SDS 07:48
PROVIDERS: ATTEND Surgery
DX: K43.9 Ventral hernia without obstruction or gangrene (principal); J45.909 Unspecified asthma, uncomplicated; G47.30 Sleep apnea, unspecified; E66.9 Obesity, unspecified; Z68.31 Body mass index [BMI] 31.0-31.9, adult; Z88.6 Allergy status to analgesic agent; Z88.8 Allergy status to other drugs, medicaments and biological substances; Z79.899 Other long term (current) drug therapy; Z87.891 Personal history of nicotine dependence
CPT/HCPCS: 49652; A9270; J0690; J1100; J1170; J1885; J2250; J2405; J2704; J2710; J3010; J3490; J7120; 00790; C1781

== ENCOUNTER 2021-02-07 06:19 | Emergency (ER) | payer BC ==
[2021-02-07] MEDS ORDERED: HYDROmorphone 1 MG/ML Syringe IM ONE (07:18)
[2021-02-07] MEDS ORDERED: Ketorolac 60 MG/2 ML SDV IM ONE (07:18)
[2021-02-07] MEDS ORDERED: Ondansetron 4 MG Tab.DIS PO ONE (07:18)
--- NOTE | 2021-02-07 08:20 | EDM.PDOC ---
ED HPI GENERAL MEDICAL PROBLEM - General Chief Complaint: Headache Stated Complaint: MIGRAINE Time Seen by Provider: 02/07/21 06:59 Source of Information: Reports: Patient, RN Notes Reviewed - History of Present Illness INITIAL COMMENTS - FREE TEXT/NARRATIVE: 45 yr old male with [place] for 3 days, frontal, feels tight. Feels similar to previous migraines he has had. Nausea but no vomtiing. Has not otherwise been ill. Headache Pain Score (Numeric/FACES): 10 - Related Data Allergies Allergy/AdvReac Type Severity Reaction Status Date / Time morphine Allergy Severe Itching Verified 12/12/20 11:07 oxycodone [From Percocet] Allergy Severe Itching Verified 12/12/20 11:07 Home Meds: Home Meds QUEtiapine [SEROquel] 100 mg PO BEDTIME 05/17/19 [History] buPROPion HCL [Wellbutrin Xl] 150 mg PO DAILY 05/17/19 [History] cloNIDine [Catapres] 0.1 mg PO DAILY 05/17/19 [History] hydrOXYzine HCL [Hydroxyzine HCl] 50 mg PO DAILY 05/17/19 [History] ALPRAZolam [Alprazolam] 0.25 mg PO DAILY PRN 10/18/20 [History] Prazosin HCl [Prazosin] 2 mg PO BEDTIME 10/18/20 [History] lamoTRIgine [Lamotrigine] 100 mg PO DAILY 10/18/20 [History] Albuterol Sulfate [Albuterol Sulfate HFA] 8.5 gm INH Q4HR PRN 12/12/20 [History] Cyclobenzaprine [Flexeril] 10 mg PO TID PRN 12/12/20 [History] Fluticasone/Vilanterol [Breo Ellipta 100-25 MCG Inhalation Kit] 1 each IH DAILY 12/12/20 [History] SUMAtriptan [Imitrex] 50 mg PO DAILY PRN 12/12/20 [History] ZOLMitriptan [Zolmitriptan] 2.5 mg IN DAILY PRN 12/12/20 [History] oxyCODONE 5 mg PO Q4H PRN #20 tab 12/12/20 [Rx] Past Medical History HEENT History: Reports: Impaired Vision Other HEENT History: wears eyeglasses, sinus infection, left otitis media, middle ear effusion, pharyngitis, sore throat Cardiovascular History: Reports: None Respiratory History: Reports: Asthma, Sleep Apnea Gastrointestinal History: Reports: None Genitourinary History: Reports: None 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 Musculoskeletal History: Reports: Fracture Neurological History: Reports: Migraines Psychiatric History: Reports: Anxiety, Depression, PTSD Endocrine/Metabolic History: Reports: Obesity/BMI 30+ Hematologic History: Reports: None Immunologic History: Reports: None Oncologic (Cancer) History: Reports: None Dermatologic History: Reports: None - Infectious Disease History Infectious Disease History: Reports: Chicken Pox, Measles - Past Surgical History Head Surgeries/Procedures: Reports: None HEENT Surgical History: Reports: None Cardiovascular Surgical History: Reports: None Respiratory Surgical History: Reports: None GI Surgical History: Reports: Appendectomy, Cholecystectomy, Other (See Below) Other GI Surgeries/Procedures: ventral hernia Male Surgical History: Reports: None Endocrine Surgical History: Reports: None Neurological Surgical History: Reports: None Musculoskeletal Surgical History: Reports: Arthroscopic Knee, Shoulder Surgery Oncologic Surgical History: Reports: None Dermatological Surgical History: Reports: None Social & Family History - Family History Family Medical History: No Pertinent Family History - Tobacco Use Tobacco Use Status *Q: Never Tobacco User - Caffeine Use Caffeine Use: Reports: None - Recreational Drug Use Recreational Drug Use: No - Living Situation & Occupation Living situation: Reports: Occupation: Employed ED ROS GENERAL - Review of Systems Review Of Systems: See Below Constitutional: Denies: Fever, Chills HEENT: Denies: Ear Pain, Sinus Problem Respiratory: Denies: Shortness of Breath, Cough Cardiovascular: Denies: Chest Pain GI/Abdominal: Reports: Nausea. Denies: Abdominal Pain, Vomiting Musculoskeletal: Denies: Neck Pain Skin: Reports: No Symptoms Neurological: Reports: Headache. Denies: Numbness, Tingling, Trouble Speaking, Difficulty Walking, Weakness - Physical Exam Exam: See Below General Appearance: Alert, Mild Distress Eye Exam: Bilateral Eye: PERRL Head Exam: Atraumatic Neck: Supple Respiratory/Chest: No Respiratory Distress, Lungs Clear, Normal Breath Sounds Cardiovascular: Regular Rate, Rhythm Neuro Exam (Abbreviated): Alert, Oriented, No Motor/Sensory Deficits Extremities: Normal Inspection, Normal Range of Motion Skin Exam: Warm, Dry, Normal Color Course - Vital Signs Last Recorded V/S: Last Vital Signs Temp 97.2 F 10/13/21 06:36 Pulse 80 02/07/21 06:36 Resp 18 02/07/21 06:36 BP 124/85 02/07/21 06:36 Pulse Ox 99 02/07/21 06:36 - Orders/Labs/Meds Meds: Medications Discontinued Medications Generic Name Dose Route Start Last Admin Trade Name Damien PRN Reason Stop Dose Admin Hydromorphone HCl 1 mg 02/07/21 07:18 02/07/21 07:32 Hydromorphone 1 Mg/Ml Syringe IM 02/07/21 07:19 1 mg ONETIME ONE Administration Ketorolac Tromethamine 60 mg 02/07/21 07:18 02/07/21 07:32 Ketorolac 60 Mg/2 Ml Sdv IM 02/07/21 07:19 60 mg ONETIME ONE Administration Ondansetron HCl 4 mg 02/07/21 07:18 02/07/21 07:33 Ondansetron 4 Mg Tab.Dis PO 02/07/21 07:19 4 mg ONETIME ONE Administration Departure - Departure Time of Disposition: 08:20 Disposition: Home, Self-Care 01 Condition: Fair Clinical Impression: Migraine - Discharge Information Instructions: Migraine Headache, [id number] Referrals: Jesus Soriano PA-C [Primary Care Provider] - Forms: ED Department Discharge Additional Instructions: Rest, no driving for the next 8 hrs due to sedative meds given. Follow up clinic if not much better by tomorrow. Sepsis Event Note (ED) - Evaluation Sepsis Screening Result: No Definite Risk - Focused Exam Vital Signs: Vital Signs Temp Pulse Resp BP Pulse Ox 02/07/21 06:36 97.2 F 80 18 124/85 99
== END 2021-02-07 08:47 | disposition home or self-care (01) ==
LOC: JD.ED 06:19
DX: G43.909 Migraine, unspecified, not intractable, without status migrainosus (principal); J45.909 Unspecified asthma, uncomplicated; E66.9 Obesity, unspecified; Z68.31 Body mass index [BMI] 31.0-31.9, adult; Z88.5 Allergy status to narcotic agent; Z79.899 Other long term (current) drug therapy
CPT/HCPCS: 96372; 96374; 99283; A9270; J1170; J1885

== ENCOUNTER 2021-05-03 17:20 | Emergency (ER) | payer BC ==
[2021-05-03] MEDS ORDERED: HYDROmorphone 1 MG/ML Syringe IM ONE (18:48)
[2021-05-03] MEDS ORDERED: Ketorolac 60 MG/2 ML SDV IM ONE (18:48)
[2021-05-03] MEDS ORDERED: Ondansetron 4 MG Tab.DIS PO ONE (18:48)
--- NOTE | 2021-05-03 19:41 | EDM.PDOC ---
ED HPI GENERAL MEDICAL PROBLEM - General Chief Complaint: Headache Stated Complaint: HEADACHE Time Seen by Provider: 05/03/21 18:30 Source of Information: Reports: Patient, RN Notes Reviewed History Limitations: Reports: No Limitations - History of Present Illness INITIAL COMMENTS - FREE TEXT/NARRATIVE: Patient is a 46-year-old male presenting to the emergency department with co mplaints of migraine headache. He has a history of migraines and reports that about 1-2 times every 6 months they get bad enough to require a trip to the ER. He reports this feels like a typical migraine for him. He has prescription for Toradol at home. He took a dose very early this morning and then another dose around noon. Reports nausea with no vomiting. He does have light sensitivity. He is taken no other medications for his migraine. Headache Pain Score (Numeric/FACES): 10 - Related Data Allergies Allergy/AdvReac Type Severity Reaction Status Date / Time morphine Allergy Severe Itching Verified 05/03/21 18:18 oxycodone [From Percocet] Allergy Severe Itching Verified 05/03/21 18:18 Home Meds: Home Meds QUEtiapine [SEROquel] 100 mg PO BEDTIME 05/17/19 [History] buPROPion HCL [Wellbutrin Xl] 150 mg PO DAILY 05/17/19 [History] cloNIDine [Catapres] 0.1 mg PO DAILY 05/17/19 [History] hydrOXYzine HCL [Hydroxyzine HCl] 50 mg PO DAILY 05/17/19 [History] ALPRAZolam [Alprazolam] 0.25 mg PO DAILY PRN 10/18/20 [History] Prazosin HCl [Prazosin] 2 mg PO BEDTIME 10/18/20 [History] lamoTRIgine [Lamotrigine] 100 mg PO DAILY 10/18/20 [History] Albuterol Sulfate [Albuterol Sulfate HFA] 8.5 gm INH Q4HR PRN 12/12/20 [History] Cyclobenzaprine [Flexeril] 10 mg PO TID PRN 12/12/20 [History] Fluticasone/Vilanterol [Breo Ellipta 100-25 MCG Inhalation Kit] 1 each IH DAILY 12/12/20 [History] SUMAtriptan [Imitrex] 50 mg PO DAILY PRN 12/12/20 [History] ZOLMitriptan [Zolmitriptan] 2.5 mg IN DAILY PRN 12/12/20 [History] oxyCODONE 5 mg PO Q4H PRN #20 tab 12/12/20 [Rx] Past Medical History HEENT History: Reports: Impaired Vision Other HEENT History: wears eyeglasses, sinus infection, left otitis media, middle ear effusion, pharyngitis, sore throat Cardiovascular History: Reports: None Respiratory History: Reports: Asthma, Sleep Apnea Gastrointestinal History: Reports: None Genitourinary History: Reports: None [employer] History: Reports: None Musculoskeletal History: Reports: Fracture Neurological History: Reports: Migraines Psychiatric History: Reports: Anxiety, Depression, PTSD Endocrine/Metabolic History: Reports: Obesity/BMI 30+ Hematologic History: Reports: None Immunologic History: Reports: None Oncologic (Cancer) History: Reports: None Dermatologic History: Reports: None - Infectious Disease History Infectious Disease History: Reports: Chicken Pox, Measles - Past Surgical History Head Surgeries/Procedures: Reports: None HEENT Surgical History: Reports: None Cardiovascular Surgical History: Reports: None Respiratory Surgical History: Reports: None GI Surgical History: Reports: Appendectomy, Cholecystectomy, Other (See Below) Other GI Surgeries/Procedures: ventral hernia Male Surgical History: Reports: None Endocrine Surgical History: Reports: None Neurological Surgical History: Reports: None Musculoskeletal Surgical History: Reports: Arthroscopic Knee, Shoulder Surgery Oncologic Surgical History: Reports: None Dermatological Surgical History: Reports: None Social & Family History - Family History Family Medical History: No Pertinent Family History - Tobacco Use Tobacco Use Status *Q: Never Tobacco User - Caffeine Use Caffeine Use: Reports: None - Living Situation & Occupation Living situation: Reports: Occupation: Employed ED ROS GENERAL - Review of Systems Review Of Systems: Comprehensive ROS is negative, except as noted in HPI. - Physical Exam Exam: See Below Exam Limited By: No Limitations General Appearance: Alert, WD/WN, No Apparent Distress Eye Exam: Bilateral Eye: PERRL Respiratory/Chest: No Respiratory Distress, Lungs Clear, Normal Breath Sounds, No Accessory Muscle Use, Chest Non-Tender Cardiovascular: Normal Peripheral Pulses, Regular Rate, Rhythm, No Edema, No Gallop, No JVD, No Murmur, No Rub Neuro Exam (Abbreviated): Alert, Oriented, Normal Cognition, Normal Gait, Normal Reflexes, No Motor/Sensory Deficits Psychiatric: Normal Affect, Normal Mood Skin Exam: Warm, Dry, Intact, Normal Color, No Rash Course - Vital Signs Last Recorded V/S: Last Vital Signs Temp 98.6 F 05/03/21 18:14 Pulse 71 05/03/21 18:14 Resp 18 05/03/21 18:14 BP 168/99 H 05/03/21 18:14 Pulse Ox 100 05/03/21 18:14 - Orders/Labs/Meds Meds: Medications Discontinued Medications Generic Name Dose Route Start Last Admin Trade Name Damien PRN Reason Stop Dose Admin Hydromorphone HCl 1 mg 05/03/21 18:48 05/03/21 18:56 Hydromorphone 1 Mg/Ml Syringe IM 05/03/21 18:49 1 mg ONETIME ONE Administration Ketorolac Tromethamine 60 mg 05/03/21 18:48 05/03/21 18:57 Ketorolac 60 Mg/2 Ml Sdv IM 05/03/21 18:49 60 mg ONETIME ONE Administration Ondansetron HCl 4 mg 05/03/21 18:48 05/03/21 18:59 Ondansetron 4 Mg Tab.Dis PO 05/03/21 18:49 4 mg ONETIME ONE Administration - Re-Assessments/Exams Free Text/Narrative Re-Assessment/Exam: Patient is a 46-year-old male presenting to ER for migraine headache. Exam is unremarkable. Patient reports he has the opposite effect with Benadryl and that it makes his headaches worse. We will give Toradol 60 mg IM, Dilaudid 1 mg IM, and Zofran ODT 4 mg. 05/03/21 19:40 Patient is feeling much better after the medications given. He will be discharged home. Discharge instructions as document. Departure - Departure Time of Disposition: 19:40 Disposition: Home, Self-Care 01 Condition: Good Clinical Impression: Migraine - Discharge Information *PRESCRIPTION DRUG MONITORING PROGRAM REVIEWED*: No *COPY OF PRESCRIPTION DRUG MONITORING REPORT IN PATIENT MIKALA: No Instructions: Chronic Migraine Headache Referrals: Jesus Soriano PA-C [Primary Care Provider] - Additional Instructions: Go home and rest in a quiet dark room. Do not take another dose of Toradol or ibuprofen for 6 hours after the injection he received in ER. Return to ER as needed. Sepsis Event Note (ED) - Evaluation Sepsis Screening Result: No Definite Risk - Focused Exam Vital Signs: Vital Signs Temp Pulse Resp BP Pulse Ox 05/03/21 18:14 98.6 F 71 18 168/99 H 100
== END 2021-05-03 19:50 | disposition home or self-care (01) ==
LOC: JD.ED 17:20
DX: G43.909 Migraine, unspecified, not intractable, without status migrainosus (principal); E66.9 Obesity, unspecified; Z88.5 Allergy status to narcotic agent; Z68.30 Body mass index [BMI] 30.0-30.9, adult
CPT/HCPCS: 96372; 99283; A9270; J1170; J1885

== ENCOUNTER 2021-06-29 17:49 | Emergency (ER) | payer BC ==
[2021-06-29] MEDS ORDERED: HYDROmorphone 1 MG/ML Syringe IM ONE (18:34)
[2021-06-29] MEDS ORDERED: Ondansetron 4 MG/2 ML SDV IM ONE (18:34)
== END 2021-06-29 20:01 | disposition home or self-care (01) ==
LOC: JD.ED 17:49
DX: G43.109 Migraine with aura, not intractable, without status migrainosus (principal); J45.909 Unspecified asthma, uncomplicated; E66.9 Obesity, unspecified; Z68.30 Body mass index [BMI] 30.0-30.9, adult; Z88.5 Allergy status to narcotic agent
CPT/HCPCS: 96372; 99283; J1170; J2405; 99284

== ENCOUNTER 2021-08-17 17:09 | Emergency (ER) | payer BC ==
[2021-08-17] MEDS ORDERED: Sodium Chloride 0.9% 10 ML Syringe FLUSH PRN (17:34)
[2021-08-17] MEDS ORDERED: Ondansetron 4 MG/2 ML SDV IVPUSH ONE (17:35)
[2021-08-17] MEDS ORDERED: HYDROmorphone 1 MG/ML Syringe IVPUSH ONE (17:35)
[2021-08-17] MEDS ORDERED: Ketorolac 30 MG/ML SDV IVPUSH SCH (17:45)
== END 2021-08-17 18:40 | disposition home or self-care (01) ==
LOC: JD.ED 17:09
DX: G43.009 Migraine without aura, not intractable, without status migrainosus (principal); E66.9 Obesity, unspecified; Z68.30 Body mass index [BMI] 30.0-30.9, adult; Z88.5 Allergy status to narcotic agent
CPT/HCPCS: 96374; 96375; 99283; J1170; J1885; J2405; J3490; 99282

== ENCOUNTER 2021-11-08 06:19 | Emergency (ER) | payer BC, OTHER ==
[2021-11-08] MEDS ORDERED: Metoclopramide 10 MG/2 ML SDV IVPUSH ONE (07:10)
[2021-11-08] MEDS ORDERED: HYDROmorphone 1 MG/ML Syringe IVPUSH ONE (07:10)
[2021-11-08] MEDS ORDERED: diphenhydrAMINE 50 MG/ML SDV IVPUSH ONE (07:10)
[2021-11-08] MEDS ORDERED: Dextrose 5%-0.9% NaCl 1,000 ML IV SCH (07:15)
[2021-11-08] MEDS ORDERED: Benztropine 1 MG Tab PO ONE (07:46)
[2021-11-08] MEDS ORDERED: Ketorolac 30 MG/ML SDV IVPUSH SCH (09:00)
== END 2021-11-08 09:53 | disposition home or self-care (01) ==
LOC: JD.ED 06:19
DX: G43.109 Migraine with aura, not intractable, without status migrainosus (principal); E66.9 Obesity, unspecified; Z88.5 Allergy status to narcotic agent; Z68.30 Body mass index [BMI] 30.0-30.9, adult
CPT/HCPCS: 96361; 96374; 96375; 99283; A9270; J1170; J1885; J2765; J7042

== ENCOUNTER 2022-03-21 18:48 | Emergency (ER) | payer OTHER ==
[2022-03-21] MEDS ORDERED: Ketorolac 30 MG/ML SDV IM ONE (19:21)
[2022-03-21] MEDS ORDERED: Metoclopramide 10 MG/2 ML SDV IM ONE (19:22)
[2022-03-21] MEDS ORDERED: HYDROmorphone 0.5 MG/0.5 ML Syringe IM ONE (19:23)
== END 2022-03-21 20:58 | disposition home or self-care (01) ==
LOC: JD.ED 18:48
DX: G43.109 Migraine with aura, not intractable, without status migrainosus (principal); J45.909 Unspecified asthma, uncomplicated; E66.9 Obesity, unspecified; Z68.30 Body mass index [BMI] 30.0-30.9, adult; Z88.5 Allergy status to narcotic agent; Z79.899 Other long term (current) drug therapy
CPT/HCPCS: 96372; 99283; J1170; J1885; J2765

== ENCOUNTER 2022-06-05 17:22 | Emergency (ER) | payer OTHER ==
[2022-06-05] MEDS ORDERED: HYDROmorphone 1 MG/ML Syringe IM ONE (20:25)
[2022-06-05] MEDS ORDERED: Ketorolac 60 MG/2 ML SDV IM ONE (20:25)
[2022-06-05] MEDS ORDERED: Metoclopramide 10 MG/2 ML SDV IM ONE (20:25)
== END 2022-06-05 22:34 | disposition home or self-care (01) ==
LOC: JD.ED 17:22
DX: G43.909 Migraine, unspecified, not intractable, without status migrainosus (principal); J45.909 Unspecified asthma, uncomplicated; E66.9 Obesity, unspecified; Z68.30 Body mass index [BMI] 30.0-30.9, adult; Z79.899 Other long term (current) drug therapy; Z90.49 Acquired absence of other specified parts of digestive tract
CPT/HCPCS: 96372; 99283; J1170; J1885; J2765; 99282

== ENCOUNTER 2022-07-02 06:36 | Emergency (ER) | payer OTHER ==
[2022-07-02] MEDS ORDERED: Sodium Chloride 0.9% 1,000 ML IV ONE (07:02)
[2022-07-02] MEDS ORDERED: Sodium Chloride 0.9% 10 ML Syringe FLUSH PRN (07:02)
[2022-07-02] MEDS ORDERED: Ketorolac 30 MG/ML SDV IVPUSH ONE (07:03)
[2022-07-02] MEDS ORDERED: diphenhydrAMINE 50 MG/ML SDV IVPUSH ONE (07:03)
[2022-07-02] MEDS ORDERED: Metoclopramide 10 MG/2 ML SDV IVPUSH ONE (07:03)
[2022-07-02] MEDS ORDERED: HYDROmorphone 1 MG/ML Syringe IVPUSH ONE (09:03)
== END 2022-07-02 10:00 | disposition home or self-care (01) ==
LOC: JD.ED 06:36
DX: G43.909 Migraine, unspecified, not intractable, without status migrainosus (principal); J45.909 Unspecified asthma, uncomplicated; E66.9 Obesity, unspecified; Z68.30 Body mass index [BMI] 30.0-30.9, adult; Z79.899 Other long term (current) drug therapy
CPT/HCPCS: 96361; 96374; 96375; 99283; J1170; J1885; J2765; J3490; J7030; 99282

== ENCOUNTER 2022-09-23 07:04 | Emergency (ER) | payer OTHER ==
[2022-09-23] MEDS ORDERED: Sodium Chloride 0.9% 1,000 ML IV ONE (07:49)
[2022-09-23] MEDS ORDERED: Metoclopramide 10 MG/2 ML SDV IVPUSH ONE ×2 (07:49→08:38)
[2022-09-23 08:15] LABS: HEMATOCRIT 45.7 % (40.1-51.0); HEMOGLOBIN 15.5 gm/dl (13.7-17.5); MEAN CORPUSCULAR HEMOGLOBIN 28.1 pg (25.7-32.2); MEAN CORPUSCULAR HGB CONC 33.9 g/dl (32.2-35.5); MEAN CORPUSCULAR VOLUME 82.9 fl (79.0-92.2); MEAN PLATELET VOLUME 8.4 fl (9.4-12.3); PLATELET COUNT,PLT 243 K/mm3 (163-337); RED BLOOD CELL COUNT 5.51 M/mm3 (4.63-6.08); WHITE BLOOD CELL COUNT,WBC 5.23 K/mm3 (4.23-9.07)
[2022-09-23 08:43] LABS: A/G RATIO 1.2 (1-2); ALBUMIN 3.7 g/dl (3.4-5.0); ANION GAP 13.3 (5-15); BILIRUBIN TOTAL 0.3 mg/dL (0.2-1.0); BUN/CREATININE RATIO 14.5 (14-18); CALCIUM 8.8 mg/dL (8.5-10.1); CREATININE 1.1 mg/dL (0.7-1.3); EST CRCL DRUG DOSING (CG) 85.72 mL/min; POTASSIUM,K 4.3 mEq/L (3.5-5.1); PROTEIN TOTAL,TP 6.7 g/dl (6.4-8.2)
[2022-09-23 08:53] LABS: BARBITURATE SCREEN,URINE NEGATIVE (CUTOFF=200); BENZODIAZEPINES SCREEN,URINE NEGATIVE (CUTOFF=150); BUPRENORPHINE SCREEN,URINE NEGATIVE (CUTOFF=10); METHADONE SCREEN, URINE NEGATIVE (CUT0FF=200); METHAMPHETAMINES SCREEN, URINE NEGATIVE (CUTOFF=500); OXYCODONE SCREEN,URINE NEGATIVE (CUT0FF=100); PROPOXYPHENE SCREEN,URINE NEGATIVE (CUTOFF=300); THC SCREEN,URINE 20 NG/ML NEGATIVE (CUTOFF=50)
[2022-09-23 08:56] LABS: AMPHETAMINES SCREEN, URINE NEGATIVE (CUTOFF=500)
[2022-09-23] MEDS ORDERED: LORazepam 2 MG/ML SDV IVPUSH ONE (08:56)
[2022-09-23 09:01] LABS: BAND PERCENT MAN 3 % (0-10); BASOPHILS PERCENT MAN 0 (0.2-1.2); EOSINOPHILS PERCENT MAN 4 % (0.8-7.0); LYMPHOCYTES % ATYPICAL MANUAL 9 %; LYMPHOCYTES PERCENT MAN 34 % (20-40); MONOCYTES PERCENT MAN 5 % (2-10)
[2022-09-23 09:02] LABS: PLATELET COUNT ESTIMATE ADEQUATE
== END 2022-09-23 10:25 | disposition home or self-care (01) ==
LOC: JD.ED 07:04
DX: G44.89 Other headache syndrome (principal); G44.40 Drug-induced headache, not elsewhere classified, not intractable; T39.95XA Adverse effect of unspecified nonopioid analgesic, antipyretic and antirheumatic, initial encounter; J45.909 Unspecified asthma, uncomplicated; E66.9 Obesity, unspecified; Z91.030 Bee allergy status; Z68.29 Body mass index [BMI] 29.0-29.9, adult
CPT/HCPCS: 36415; 80053; 80306; 80307; 85007; 85027; 96361; 96374; 96375; 99284; J2060; J2765; J7030

== ENCOUNTER 2022-11-02 16:21 | Emergency (ER) | payer OTHER ==
[2022-11-02] MEDS ORDERED: Sodium Chloride 0.9% 10 ML Syringe FLUSH PRN (17:20)
[2022-11-02] MEDS ORDERED: Ketorolac 30 MG/ML SDV IVPUSH ONE (17:38)
[2022-11-02] MEDS ORDERED: HYDROmorphone 0.5 MG/0.5 ML Syringe IVPUSH ONE (17:38)
[2022-11-02] MEDS ORDERED: Metoclopramide 10 MG/2 ML SDV IVPUSH ONE (17:38)
[2022-11-02] MEDS ORDERED: Sodium Chloride 0.9% 1,000 ML IV STA (17:38)
== END 2022-11-02 19:46 | disposition home or self-care (01) ==
LOC: JD.ED 16:21
DX: G43.909 Migraine, unspecified, not intractable, without status migrainosus (principal); J45.909 Unspecified asthma, uncomplicated; E66.9 Obesity, unspecified; Z68.29 Body mass index [BMI] 29.0-29.9, adult; Z91.030 Bee allergy status; Z79.899 Other long term (current) drug therapy
CPT/HCPCS: 96374; 96375; 99283; J1170; J1885; J2765; J3490; J7030; 99282

== ENCOUNTER 2022-11-12 08:21 | Emergency (ER) | payer OTHER ==
[2022-11-12] MEDS ORDERED: HYDROmorphone 0.5 MG/0.5 ML Syringe IVPUSH ONE (09:40)
[2022-11-12] MEDS ORDERED: Ondansetron 4 MG/2 ML SDV IVPUSH ONE (09:40)
[2022-11-12] MEDS ORDERED: Lactated Ringers 1,000 ML IV ONE (09:40)
[2022-11-12] MEDS ORDERED: Ketorolac 30 MG/ML SDV IVPUSH ONE (09:40)
== END 2022-11-12 11:26 | disposition home or self-care (01) ==
LOC: JD.ED 08:21
DX: G43.909 Migraine, unspecified, not intractable, without status migrainosus (principal); J45.909 Unspecified asthma, uncomplicated; E66.9 Obesity, unspecified; Z68.30 Body mass index [BMI] 30.0-30.9, adult; Z91.048 Other nonmedicinal substance allergy status; Z91.030 Bee allergy status
CPT/HCPCS: 96361; 96374; 96375; 99283; J1170; J1885; J2405; J7120

== ENCOUNTER 2022-11-12 19:53 | Emergency (ER) | payer OTHER ==
[2022-11-12] MEDS ORDERED: Promethazine 25 MG/ML SDV IM ONE (20:30)
[2022-11-12] MEDS ORDERED: Dexamethasone 4 MG/ML 5 ML MDV IV ONE (20:31)
[2022-11-12] MEDS ORDERED: Prochlorperazine 10 MG in Sodium Chloride 0.9% 50 ML IV ONE ×2 (20:32→21:03)
[2022-11-12] MEDS ORDERED: Naloxone 0.4 MG/ML SDV IVPUSH PRN (21:03)
[2022-11-12] MEDS ORDERED: HYDROmorphone 0.5 MG/0.5 ML Syringe IVPUSH ONE (21:03)
[2022-11-12 21:06] LABS: BASOPHILS ABSOLUTE AUTO 0.05 K/mm3 (0.01-0.08); BASOPHILS PERCENT AUTO 0.6 % (0.1-1.2); EOSINOPHILS ABSOLUTE AUTO 0.19 K/mm3 (0.04-0.54); EOSINOPHILS PERCENT AUTO 2.4 (0.8-7.0); HEMATOCRIT 43.2 % (40.1-51.0); HEMOGLOBIN 14.9 gm/dl (13.7-17.5); IMMATURE GRAN ABSOLUTE AUTO 0.01 K/mm3 (0.00-0.10); IMMATURE GRAN PERCENT AUTO 0.1 % (<=1.0); LYMPHOCYTES ABSOLUTE AUTO 2.37 K/mm3 (1.32-3.57); LYMPHOCYTES PERCENT AUTO 29.6 % (21.8-53.1); MEAN CORPUSCULAR HEMOGLOBIN 28.7 pg (25.7-32.2); MEAN CORPUSCULAR HGB CONC 34.5 g/dl (32.2-35.5); MEAN CORPUSCULAR VOLUME 83.2 fl (79.0-92.2); MEAN PLATELET VOLUME 8.7 fl (9.4-12.3); MONOCYTES ABSOLUTE AUTO 0.58 K/mm3 (0.30-0.82); MONOCYTES PERCENT AUTO 7.2 % (5.3-12.2); NEUTROPHILS ABSOLUTE AUTO 4.81 K/mm3 (1.78-5.38); NEUTROPHILS PERCENT AUTO 60.1 % (34.0-67.9); PLATELET COUNT,PLT 245 K/mm3 (163-337); RED BLOOD CELL COUNT 5.19 M/mm3 (4.63-6.08); WHITE BLOOD CELL COUNT,WBC 8.01 K/mm3 (4.23-9.07)
[2022-11-12 21:39] LABS: A/G RATIO 1.1 (1-2); ALBUMIN 3.4 g/dl (3.4-5.0); ANION GAP 10.8 (5-15); BILIRUBIN TOTAL 0.2 mg/dL (0.2-1.0); CALCIUM 8.8 mg/dL (8.5-10.1); EST CRCL DRUG DOSING (CG) 94.29 mL/min; MAGNESIUM 1.8 mg/dL (1.8-2.4); POTASSIUM,K 3.8 mEq/L (3.5-5.1); PROTEIN TOTAL,TP 6.4 g/dl (6.4-8.2); TSH 3.303 uIU/mL (0.358-3.74)
[2022-11-12 21:45] LABS: IRON,FE 67 ug/dL (65-175); PERCENT FE SATURATION 25 % (20-55); TOTAL IRON BINDING CAPACITY 266 ug/dL (100-400); TRANSFERRIN 213 mg/dL (202-364)
== END 2022-11-12 23:30 | disposition home or self-care (01) ==
LOC: JD.ED 19:53
DX: G43.909 Migraine, unspecified, not intractable, without status migrainosus (principal); G47.33 Obstructive sleep apnea (adult) (pediatric); R74.01 Elevation of levels of liver transaminase levels; E66.9 Obesity, unspecified; Z68.30 Body mass index [BMI] 30.0-30.9, adult; Z91.038 Other insect allergy status; Z79.899 Other long term (current) drug therapy; Z90.49 Acquired absence of other specified parts of digestive tract
CPT/HCPCS: 36415; 80053; 83540; 83735; 84443; 84466; 85025; 96365; 96375; 99284; J0780; J1100; J1170; J3490

== ENCOUNTER 2022-12-28 18:22 | Emergency (ER) | payer OTHER ==
[2022-12-28] MEDS ORDERED: Sodium Chloride 0.9% 1,000 ML IV ONE (18:58)
[2022-12-28] MEDS ORDERED: Metoclopramide 10 MG/2 ML SDV IVPUSH ONE (18:58)
[2022-12-28] MEDS ORDERED: HYDROmorphone 0.5 MG/0.5 ML Syringe IVPUSH ONE (18:58)
[2022-12-28] MEDS ORDERED: Ketorolac 30 MG/ML SDV IVPUSH ONE (18:58)
== END 2022-12-28 20:45 | disposition home or self-care (01) ==
LOC: JD.ED 18:22
DX: G43.909 Migraine, unspecified, not intractable, without status migrainosus (principal); J45.909 Unspecified asthma, uncomplicated; E66.9 Obesity, unspecified; Z68.29 Body mass index [BMI] 29.0-29.9, adult; Z91.030 Bee allergy status; Z88.8 Allergy status to other drugs, medicaments and biological substances
CPT/HCPCS: 96374; 96375; 99283; J1170; J1885; J2765; J7030

== ENCOUNTER 2023-02-19 06:44 | Emergency (ER) | payer OTHER ==
[2023-02-19] MEDS ORDERED: Ketorolac 30 MG/ML SDV IVPUSH ONE (06:51)
[2023-02-19] MEDS ORDERED: Prochlorperazine 10 MG/2 ML SDV IVPUSH ONE (06:51)
[2023-02-19] MEDS ORDERED: Sodium Chloride 0.9% 1,000 ML IV ONE (06:51)
[2023-02-19] MEDS ORDERED: Sodium Chloride 0.9% 10 ML Syringe FLUSH PRN (06:51)
== END 2023-02-19 07:22 | disposition left against medical advice (07) ==
LOC: JD.ED 06:44
DX: R51.9 Headache, unspecified (principal); J45.909 Unspecified asthma, uncomplicated; E66.9 Obesity, unspecified; Z68.29 Body mass index [BMI] 29.0-29.9, adult; Z91.030 Bee allergy status; Z88.8 Allergy status to other drugs, medicaments and biological substances; Z79.899 Other long term (current) drug therapy
CPT/HCPCS: 96374; 96375; 99283; J0780; J1885; J3490; J7030; 99282

== ENCOUNTER 2023-05-23 17:56 | Emergency (ER) | payer OTHER ==
[2023-05-23] MEDS ORDERED: Sodium Chloride 0.9% 10 ML Syringe FLUSH PRN (18:19)
[2023-05-23] MEDS ORDERED: Magnesium Sulfate/Water 2 GM in Premix Bag 1 BAG IV ONE (18:19)
[2023-05-23] MEDS ORDERED: Haloperidol Lactate 5 MG/ML SDV IVPUSH ONE (18:21)
[2023-05-23] MEDS ORDERED: Sodium Chloride 0.9% 1,000 ML IV SCH (18:30)
[2023-05-23] MEDS ORDERED: Ketorolac 30 MG/ML SDV IVPUSH ONE (19:20)
[2023-05-23] MEDS ORDERED: Dexamethasone 4 MG/ML SDV IVPUSH ONE (19:23)
== END 2023-05-23 20:38 | disposition home or self-care (01) ==
LOC: JD.ED 17:56
DX: G43.909 Migraine, unspecified, not intractable, without status migrainosus (principal); J45.909 Unspecified asthma, uncomplicated; E66.9 Obesity, unspecified; Z90.49 Acquired absence of other specified parts of digestive tract; Z79.899 Other long term (current) drug therapy; Z91.030 Bee allergy status; Z88.8 Allergy status to other drugs, medicaments and biological substances; Z68.29 Body mass index [BMI] 29.0-29.9, adult
CPT/HCPCS: 96365; 96375; 99283; J1100; J1630; J1885; J3475; J3490; J7030

== ENCOUNTER 2023-10-01 17:38 | Emergency (ER) | payer OTHER ==
[2023-10-01] MEDS: Dexamethasone 4 MG/ML SDV IVPUSH ONE (18:36)
[2023-10-01] MEDS: Haloperidol Lactate 5 MG/ML SDV IVPUSH ONE (18:36)
[2023-10-01] MEDS: Ketorolac 30 MG/ML SDV IVPUSH ONE (18:36)
[2023-10-01] MEDS: Sodium Chloride 0.9% 10 ML Syringe FLUSH PRN (18:37)
[2023-10-01] MEDS: Sodium Chloride 0.9% 1,000 ML IV STA (18:37)
== END 2023-10-01 20:07 | disposition home or self-care (01) ==
LOC: JD.ED 17:38
DX: G43.909 Migraine, unspecified, not intractable, without status migrainosus (principal); Z88.8 Allergy status to other drugs, medicaments and biological substances; Z79.899 Other long term (current) drug therapy; E66.9 Obesity, unspecified; Z68.29 Body mass index [BMI] 29.0-29.9, adult; Z90.49 Acquired absence of other specified parts of digestive tract
CPT/HCPCS: 96374; 96375; 99283; J1100; J1630; J1885; J3490; J7030

== ENCOUNTER 2024-04-05 09:04 | Emergency (ER) | payer OTHER ==
[2024-04-05] MEDS: Sodium Chloride 0.9% 1,000 ML IV SCH (10:44)
[2024-04-05] MEDS: Ondansetron 4 MG/2 ML SDV IVPUSH ONE (10:45)
[2024-04-05] MEDS: Ketorolac 30 MG/ML SDV IVPUSH ONE (10:46)
[2024-04-05] MEDS: HYDROmorphone 1 MG/ML Syringe IVPUSH ONE (10:50)
== END 2024-04-05 12:47 | disposition home or self-care (01) ==
LOC: JD.ED 09:04
DX: G43.909 Migraine, unspecified, not intractable, without status migrainosus (principal); J45.909 Unspecified asthma, uncomplicated; E66.9 Obesity, unspecified; Z87.891 Personal history of nicotine dependence; Z90.49 Acquired absence of other specified parts of digestive tract; Z88.8 Allergy status to other drugs, medicaments and biological substances; Z79.51 Long term (current) use of inhaled steroids; Z79.899 Other long term (current) drug therapy; Z68.31 Body mass index [BMI] 31.0-31.9, adult
CPT/HCPCS: 96374; 96375; 99283; J1171; J1885; J2405; J7030

== ENCOUNTER 2024-10-10 15:44 | Emergency (ER) | payer BC ==
[2024-10-10 16:37] LABS: BASOPHILS ABSOLUTE AUTO 0.1 K/mm3 (0.0-0.2); EOSINOPHILS ABSOLUTE AUTO 0.2 K/mm3 (0.0-0.4); EOSINOPHILS PERCENT AUTO 3.4 % (0.0-6.0); HEMOGLOBIN 15.2 gm/dl (14.0-18.0); IMMATURE GRAN ABSOLUTE AUTO 0.03 K/mm3 (0.00-0.05); IMMATURE GRAN PERCENT AUTO 0.5 % (0.0-0.4); LYMPHOCYTES PERCENT AUTO 32.6 % (24.0-44.0); MEAN CORPUSCULAR HEMOGLOBIN 29.4 pg (28.0-32.0); MEAN CORPUSCULAR HGB CONC 34.5 g/dl (32.0-36.0); MEAN CORPUSCULAR VOLUME 85.1 fl (83.0-99.0); MEAN PLATELET VOLUME 9.2 fl (9.4-12.4); MONOCYTES ABSOLUTE AUTO 0.5 K/mm3 (0.0-0.8); MONOCYTES PERCENT AUTO 7.3 % (0.0-8.0); NEUTROPHILS ABSOLUTE AUTO 3.5 K/mm3 (1.8-7.7); NEUTROPHILS PERCENT AUTO 55.2 % (41.0-71.0); PLATELET COUNT,PLT 277 K/mm3 (150-400); RED BLOOD CELL COUNT 5.17 M/mm3 (4.52-5.90); WHITE BLOOD CELL COUNT,WBC 6.26 K/mm3 (3.9-11.3)
[2024-10-10 16:37] LABS: APPEARANCE,URINE CLEAR (Clear); BILIRUBIN,URINE NEGATIVE (Negative); COLOR,URINE YELLOW (Yellow); GLUCOSE,URINE NEGATIVE (Negative); KETONES,URINE NEGATIVE (Negative); LEUKOCYTE ESTERASE,URINE NEGATIVE (Negative); NITRITE,URINE NEGATIVE (Negative); OCCULT BLOOD,URINE 3+ (Negative); PROTEIN,URINE NEGATIVE (Negative); UROBILINOGEN,URINE 0.2 (0.2-1.0)
[2024-10-10] MEDS: Sodium Chloride 0.9% 10 ML Syringe FLUSH PRN (16:43)
[2024-10-10] MEDS: Ketorolac 30 MG/ML SDV IVPUSH ONE (16:43)
[2024-10-10] MEDS: HYDROmorphone 0.5 MG/0.5 ML Syringe IVPUSH ONE (16:43)
[2024-10-10] MEDS: Ondansetron 4 MG/2 ML SDV IVPUSH ONE (16:43)
[2024-10-10 16:58] LABS: A/G RATIO 1.2 (1-2); ALBUMIN 3.7 g/dl (3.4-5.0); ANION GAP 13.7 (5-15); BILIRUBIN TOTAL 0.2 mg/dL (0.2-1.0); CALCIUM 9.1 mg/dL (8.5-10.1); EST CRCL DRUG DOSING (CG) 92.26 mL/min; POTASSIUM,K 3.7 mEq/L (3.5-5.1); PROTEIN TOTAL,TP 6.7 g/dl (6.4-8.2)
[2024-10-10 17:05] LABS: RBC,URINE 50-75 /hpf (0-5)
[2024-10-10 17:06] LABS: BACTERIA,URINE FEW /hpf (FEW); EPITHELIAL CELLS,URINE 0-5 /hpf (0-5); MUCUS,URINE MODERATE /hpf (FEW); WBC,URINE 0-5 /hpf (0-5)
== END 2024-10-10 18:49 | disposition home or self-care (01) ==
LOC: JD.ED 15:44
DX: R10.9 Unspecified abdominal pain (principal); R31.29 Other microscopic hematuria; J45.909 Unspecified asthma, uncomplicated; E66.9 Obesity, unspecified; Z88.8 Allergy status to other drugs, medicaments and biological substances; Z79.899 Other long term (current) drug therapy; Z90.49 Acquired absence of other specified parts of digestive tract; Z68.33 Body mass index [BMI] 33.0-33.9, adult
CPT/HCPCS: 36415; 74176; 80053; 81001; 85025; 96374; 96375; 99284; J1885; J2405